=== PATIENT | female | born 1950 | race Two or more races ===

== ENCOUNTER 2016-09-28 11:24 | Inpatient (IN) | payer MEDICARE ==
[~2016-09-28] VITALS: Ht 170.2 cm; Wt 85.7 kg
--- NOTE | 2016-09-28 11:37 | NUR ---
PT BIB [facility] C/O DIZZINESS, HTN, AND CHEST PRESSURE/HEAVINESS THIS MORNING. PT DENIES "CHEST PAIN", JUST "PRESSURE". REPORT N/V, DENIES HEMATEMESIS. PT APPEARS VERY ANXIOUS AND TEARY. PT REPORTS POOR COMPLIANCE WITH ANTIHYPERTENSIVES. RESP EVEN UNLABORED. SKIN WARM NONDIAPHORETIC. NO NEURO DEFICITS NOTED. SPEECH CLEAR. DENIES VISION CHANGES. IN ER BED 12 ON MONITOR.
[2016-09-28] MEDS ORDERED: ONDANSETRON HCL/PF 4 MG/2 ML VIAL ONE (12:39)
[2016-09-28] MEDS ORDERED: MECLIZINE HCL 25 MG TABLET ONE (12:39)
[2016-09-28 12:44] LABS: BASOPHILS % (AUTO) 0.5 % (0.0-2.0); EOSINOPHILS # (AUTO) 0.2 /CMM (0.0-0.7); EOSINOPHILS % (AUTO) 3.5 % (0.0-6.0); HEMATOCRIT 41 % (33-45); HEMOGLOBIN 13.7 g/dL (11.5-14.8); LYMPHOCYTES # (AUTO) 1.6 /CMM (0.8-4.8); LYMPHOCYTES % (AUTO) 30.8 % (20.0-44.0); MEAN CORPUSCULAR HEMOGLOBIN 31 PG (26.0-33.0); MEAN CORPUSCULAR HGB CONC 33 g/dl (31.0-36.0); MEAN CORPUSCULAR VOLUME 91 fL (82-100); MONOCYTES # (AUTO) 0.3 /CMM (0.1-1.30); MONOCYTES % (AUTO) 4.7 % (2.0-12.0); NEUTROPHILS # (AUTO) 3.2 /CMM (1.8-8.9); NEUTROPHILS % (AUTO) 60.5 % (43.0-81.0); PLATELET COUNT (AUTO) 238 /CMM (150-450); RDW COEFFICIENT OF VARIATION 13.4 (11.5-15.0); WHITE BLOOD COUNT (AUTO) 5.3 K/uL (4.3-11.0)
--- NOTE | 2016-09-28 12:46 | NUR ---
PT TRANSPORTED TO CT IN STABLE CONDITION
--- NOTE | 2016-09-28 12:50 | NUR ---
Christiana davison in [facility] - 09/28/16 at 1508 by HFOX PT RESTING QUIETLY, NAD NOTED. ALL NEEDS ATTENDED TO.
[2016-09-28 12:54] LABS: CALCIUM, SERUM 8.6 mg/dL (8.5-10.1); CARBON DIOXIDE 28 mmol/L (21-32); CHLORIDE 106 mmol/L (98-107); CREATININE 0.9 mg/dL (0.6-1.3); GLUCOSE 147 mg/dL (74-106); POTASSIUM 3.4 mmol/L (3.5-5.1); SODIUM SERUM 142 mmol/L (136-145); UREA NITROGEN, BLOOD 19 mg/dL (7-18)
[2016-09-28 12:58] LABS: INR 0.99 (0.87-1.13); PROTHROMBIN TIME 10.3 SECS (9.5-12.7)
[2016-09-28] MEDS ORDERED: MECLIZINE HCL 12.5 MG TABLET PO ONE (13:00)
[2016-09-28] MEDS ORDERED: ONDANSETRON HCL/PF 4 MG/2 ML VIAL IV ONE (13:00)
[2016-09-28 13:02] LABS: TROPONIN I < 0.017 ng/mL (0.00-0.056)
[2016-09-28 13:09] LABS: ALANINE AMINOTRANSFERASE 32 U/L (12-78); ALBUMIN 3.6 g/dL (3.4-5.0); ALKALINE PHOSPHATASE 56 U/L (46-116); ASPARTATE AMINOTRANSFERASE 21 U/L (15-37); BILIRUBIN,DIRECT 0.1 mg/dL (0.0-0.2); BILIRUBIN,TOTAL 0.4 mg/dL (0.2-1.0); TOTAL PROTEIN, SERUM 6.8 g/dL (6.4-8.2)
--- NOTE | 2016-09-28 13:10 | NUR ---
PT RESTING QUIETLY, NAD NOTED. ALL NEEDS ATTENDED TO.
[2016-09-28] MEDS ORDERED: PROP40TA7 PO (13:38)
[2016-09-28] MEDS ORDERED: LEVO100T9 PO (13:38)
[2016-09-28] MEDS ORDERED: ASPIRIN 325 MG TABLET ONE (13:59)
[2016-09-28] MEDS ORDERED: NITROGLYCERIN PACKET 1 GM PACKET ONE (14:00)
[2016-09-28] MEDS ORDERED: ASPIRIN 325 MG TABLET PO ONE (14:00)
[2016-09-28] MEDS ORDERED: NITROGLYCERIN PACKET 1 GM PACKET TD ONE (14:00)
--- NOTE | 2016-09-28 14:23 | NUR ---
PT'S BP NOTED TO ELEVATING, THOUGH JUST AMBULATED TO RESTROOM AND BECAME ANXIOUS WHEN I MEDICATED HER. NOTIFIED.
--- NOTE | 2016-09-28 14:25 | NUR ---
PLACED ON 2L O2 VIA NC FOR SUPPORT
--- NOTE | 2016-09-28 14:45 | NUR ---
REPORT GIVEN TO SUSAN PEÑA FOR ADMISSION
--- NOTE | 2016-09-28 14:58 | NUR ---
DR PARKER, CARDIOLOGY, AT BEDSIDE
[2016-09-28] MEDS ORDERED: MORPHINE SULFATE INJ 2 MG/ML DISP.SYRIN IV PRN (15:00)
[2016-09-28] MEDS ORDERED: NITROGLYCERIN 0.4 MG/TAB BOTTLE SL PRN (15:00)
[2016-09-28] MEDS: PROPRANOLOL HCL 40 MG TABLET PO SCH (15:00)
[2016-09-28] MEDS ORDERED: ONDANSETRON HCL/PF 4 MG/2 ML VIAL IVP PRN (15:00)
[2016-09-28] MEDS: LEVOTHYROXINE SODIUM 100 MCG TABLET PO SCH (15:00)
[2016-09-28] MEDS: ASPIRIN 81 MG TAB.CHEW PO SCH (15:00)
--- NOTE | 2016-09-28 15:08 | NUR ---
PT TRANSPORTED TO TELE IN STABLE CONDIITION Addendum: 09/28/16 at 1508 by HFOX VIA ACLS PROTOCOL
[2016-09-28 15:15] VITALS: BP 158/100
--- NOTE | 2016-09-28 15:15 | NUR ---
tele rustic fence builder: admission admitted this 66 yr old female pt from [facility] with dx: chest pain. awake, a/ox4, ambulatory. no c/o sob, or chest pain at this time. placed on tele sr=66 with pvc, bbb. oriented to room and surroundings. all orders acknowledged. no skin breakdown noted. will continue to monitor.
[2016-09-28] MEDS ORDERED: LORAZEPAM INJ 2 MG/ML VIAL IV ONE (15:30)
[2016-09-28 16:00] VITALS: BP 124/64
[2016-09-28] MEDS: AMLODIPINE BESYLATE 5 MG TABLET PO SCH (16:33)
[2016-09-28 17:25] VITALS: BP 124/64
--- NOTE | 2016-09-28 17:30 | NUR ---
tele photographic press screwmaker: notes pt calm and relax at this time. tele sb with bbb=[id number]. instructed to call for assistance. will monitor.
--- NOTE | 2016-09-28 17:55 | NUR ---
tele harbor engineer: md visit dr. landa at bedside with verbal order to do orthostatic b/p now. orthorstatic b/p lyin/68, hr 51, sitting b/p 151/76, hr 51, and standing b/p 133/83, hr 60. dr. landa aware of results. dinner served. instructed to call for assistance. will continue to monitor.
--- NOTE | 2016-09-28 19:50 | NUR ---
tele/rn opening notes patient in bed asleep but able to arouse and respond and can verbalize needs.no pain reported and observed in comfortable position. alert, oriented x4. provided safety instructions and call lights within reach . skin intact and can ambulate. report given by am rn . tele reading at sr 64 with pvc. potassium was at 3.4 l and am rn informed md with no new order but to recheck jeny am labs. iv site on right hand gauge 20. will continue to provide care.
[2016-09-28 20:00] VITALS: BP 112/56
[2016-09-29] VITALS: BP 120/65
[2016-09-29] MEDS: ACETAMINOPHEN 325 MG TABLET PO PRN ×2 (01:46→22:43)
[2016-09-29 04:00] VITALS: BP 124/57
[2016-09-29 06:00] VITALS: BP 132/73
[2016-09-29 06:59] LABS: BASOPHILS % (AUTO) 0.5 % (0.0-2.0); EOSINOPHILS # (AUTO) 0.2 /CMM (0.0-0.7); EOSINOPHILS % (AUTO) 3.9 % (0.0-6.0); HEMATOCRIT 40 % (33-45); HEMOGLOBIN 13.8 g/dL (11.5-14.8); LYMPHOCYTES # (AUTO) 2.1 /CMM (0.8-4.8); LYMPHOCYTES % (AUTO) 39.4 % (20.0-44.0); MEAN CORPUSCULAR HEMOGLOBIN 31 PG (26.0-33.0); MEAN CORPUSCULAR HGB CONC 34 g/dl (31.0-36.0); MEAN CORPUSCULAR VOLUME 92 fL (82-100); MONOCYTES # (AUTO) 0.4 /CMM (0.1-1.30); MONOCYTES % (AUTO) 7.9 % (2.0-12.0); NEUTROPHILS # (AUTO) 2.6 /CMM (1.8-8.9); NEUTROPHILS % (AUTO) 48.3 % (43.0-81.0); PLATELET COUNT (AUTO) 227 /CMM (150-450); RDW COEFFICIENT OF VARIATION 14.2 (11.5-15.0); RED BLOOD CELL COUNT(AUTO) 4.38 MIL/uL (4.0-5.2); WHITE BLOOD COUNT (AUTO) 5.4 K/uL (4.3-11.0)
[2016-09-29 07:02] LABS: CALCIUM, SERUM 8.6 mg/dL (8.5-10.1); MAGNESIUM 1.9 mg/dL (1.8-2.4); POTASSIUM 3.7 mmol/L (3.5-5.1)
--- NOTE | 2016-09-29 07:35 | NUR ---
tele/rn closing notes patient in bed, awake, alert x3. able to verbalize needs. can safely go to bathroom but supervision and educate safety measures. no chest pain reported only dizziness but relieved with tylenol. call light within reach . reported no pain and will continue to monitor.
--- NOTE | 2016-09-29 08:52 | NUR ---
tele lard maker: notes pt c/o that she vomits her food and then flushed it in the toilet. zofran 4mg ivp given by rn. instructed to call for assistance. will monitor.
[2016-09-29] MEDS: PROPRANOLOL HCL 40 MG TABLET PO SCH (08:54)
[2016-09-29] MEDS: LEVOTHYROXINE SODIUM 100 MCG TABLET PO SCH (08:54)
[2016-09-29] MEDS: ASPIRIN 81 MG TAB.CHEW PO SCH (08:54)
[2016-09-29] MEDS: AMLODIPINE BESYLATE 5 MG TABLET PO SCH (08:55)
[2016-09-29] MEDS ORDERED: MAG HYDROX/AL HYDROX/SIMETH 30 ML UDC PO PRN (09:00)
--- NOTE | 2016-09-29 09:00 | NUR ---
tele special technical operations officer: cardio f/u seen and examined by dr. menard with verbal order to give mylanta 30ml po q6h prn for upset stomach. order carried out and acknowledged. pt aware.
[2016-09-29] MEDS ORDERED: REGADENOSON 0.4 MG/5 ML DISP.SYRIN IVP ONE (09:30)
--- NOTE | 2016-09-29 11:15 | NUR ---
m/s olive brine tester: neuro consult seen and examined by dr. villegas with order of stat mri brain without contrast to r/o cerebellar stroke. order acknowledged. pt made aware and checklist completed and signed by pt. also obtained consent from pt re: stress test tomorrow and verbalized understanding. pt aware that no coffee for 24 hours and npo after midnight tonight.
[2016-09-29] MEDS ORDERED: LORAZEPAM INJ 2 MG/ML VIAL IV ONE (11:30)
--- NOTE | 2016-09-29 11:30 | NUR ---
tele clinic supervisor: notes pt called and just remembered and informed me that she had a reaction to a contrast before and had a cardiac arrest. added allergy on pt's profile.
--- NOTE | 2016-09-29 12:24 | NUR ---
m/s doughnut maker: notes ativan 1mg ivp given by rn prior to mri of brain without contrast.
--- NOTE | 2016-09-29 12:30 | NUR ---
m/s high school computer science teacher: notes pt was picked up at this time for mri brain without contrast via w/c at this time.
--- NOTE | 2016-09-29 13:15 | NUR ---
m/s ward maid: notes pt back from mri at this time. instructed to call for assistance. will monitor.
--- NOTE | 2016-09-29 15:00 | NUR ---
m/s line crewman: notes sounds asleep at this time with call light within reach. will continue to monitor.
[2016-09-29 16:00] VITALS: BP 125/69
--- NOTE | 2016-09-29 17:00 | NUR ---
m/s environmental property assessor: notes resting quietly in bed with no distress noted. call light within reach. will monitor.
--- NOTE | 2016-09-29 18:22 | NUR ---
m/s plastering supervisor: notes resting comfortable in bed. pt verbalized understanding re: stress test tomorrow, stated, "nothing to eat and drink after midnight." needs attended. in no apparent distress noted. will continue to monitor.
--- NOTE | 2016-09-29 19:15 | NUR ---
RN OPEN NOTES RECEIVED PATIENT AWAKE IN BED. A/O X4. NO SIGNS OF DISTRESS OR DISCOMFORT. BREATHING EVEN AND UNLABORED. IV ACCESS IN R HAND, PATENT AND INTACT, NO SIGNS OF REDNESS OR INFILTRATION. BED IN LOW LOCKED POSITION WITH SIDE RAILS X2. CALL LIGHT WITHIN REACH. WILL CONTINUE TO MONITOR.
[2016-09-29 20:00] VITALS: BP_SYST 121; BP_SYST 135; BP_DIAS 74; BP_DIAS 87
[2016-09-29] MEDS ORDERED: ATORVASTATIN 10 MG TABLET PO SCH (22:00)
--- NOTE | 2016-09-30 08:03 | NUR ---
RN closing NOTES PATIENT AWAKE IN BED. A/O X4. NO SIGNS OF DISTRESS OR DISCOMFORT. BREATHING EVEN AND UNLABORED. IV ACCESS IN R HAND, PATENT AND INTACT, NO SIGNS OF REDNESS OR INFILTRATION. NO SIGNIFICANT CHANGES THROUGH THE NIGHT. ALL NEEDS MET.BED IN LOW LOCKED POSITION WITH SIDE RAILS X2. CALL LIGHT WITHIN REACH. ENDORSED TO AM SHIFT FOR DOROTHY.
--- NOTE | 2016-09-30 08:04 | NUR ---
RN OPENING NOTES RECEIVED PATIENT IN BED, ASLEEP, IN SEMI DWYER POSITION, NO SOB OR DISTRESS NOTED. A/O X 4, VERBALLY RESPONSIVE AND ABLE TO MAKE NEEDS KNOWN. IV INTACT AND PATENT. KEPT PATIENT CLEAN AND COMFORTABLE IN BED, CALL LIGHT WITHIN PATIENT REACH. WILL CONTINUE TO MONITOR ACCORDINGLY.
[2016-09-30 08:57] VITALS: BP 145/74
[2016-09-30] MEDS: PROPRANOLOL HCL 40 MG TABLET PO SCH (09:00)
[2016-09-30] MEDS: ASPIRIN 81 MG TAB.CHEW PO SCH (10:50)
[2016-09-30] MEDS: AMLODIPINE BESYLATE 5 MG TABLET PO SCH (10:50)
[2016-09-30] MEDS: LEVOTHYROXINE SODIUM 100 MCG TABLET PO SCH (10:50)
--- NOTE | 2016-09-30 14:20 | NUR ---
RN NOTES PATIENT IS COMFORTABLE WITH NO SIGNS OF SOB OR DISTRESS NOTED.
[2016-09-30] MEDS ORDERED: MECLIZINE HCL 25 MG TABLET PO ONE (15:00)
--- NOTE | 2016-09-30 15:30 | NUR ---
RN NOTES DR. HICKMAN ORDERED MECLIZINE AND STOP PROPANOLOL.
[2016-09-30 16:20] VITALS: BP 131/71
--- NOTE | 2016-09-30 17:32 | NUR ---
PAINTER SKI EDGE NOTES DISCHARGE INSTRUCTIONS GIVEN TO PATIENT AND ABLE TO UNDERSTAND INSTRUCTIONS AND SIGNED PAPER AND BELONGINGS LIST. PATIENT LEFT WALKING ACCOMPANIED WITH ISABEL DAVENPORT IN STABLE CONDITION. NO SOB OR DISTRESS NOTED, NOR COMPLAIN OF PAIN NOR CHEST PAIN. VITALS SIGNS CHECKED AND RECORDED. MD AND CHARGE NURSE AWARE.
== END 2016-09-30 17:32 | disposition home or self-care (01) | DRG 392 ==
LOC: ER 11:26 → TELE 14:34 → MED 09-29 11:12
PROVIDERS: ADMIT Internal Medicine; ATTEND Internal Medicine
DX: K29.70 Gastritis, unspecified, without bleeding (principal); H81.10 Benign paroxysmal vertigo, unspecified ear; E03.9 Hypothyroidism, unspecified; E87.6 Hypokalemia; F41.9 Anxiety disorder, unspecified; I10 Essential (primary) hypertension; Z87.891 Personal history of nicotine dependence; R73.9 Hyperglycemia, unspecified; Z82.49 Family history of ischemic heart disease and other diseases of the circulatory system
CPT/HCPCS: 36415; 70450-TC; 70551-TC; 71010-TC; 80048-TC; 80061-TC; 80076-TC; 83735-TC; 84100-TC; 84484-TC; 85025-TC; 85730-TC; 87081-TC; 93307-TC; A4606; A9502; J2060; J2405; J2785; J8597; Z7610

== ENCOUNTER 2019-04-12 06:53 | Inpatient (IN) | payer MEDICARE, MEDICAID ==
[~2019-04-12] VITALS: Ht 171.4 cm; Wt 80.3 kg
[~2019-04-12 06:53] MED LIST: LEVO100T9 PO; PROP40TA7 PO
--- NOTE | 2019-04-12 07:00 | NUR ---
PT CAME INTO THE ED C/O ABDOMINAL PAIN RADIATING TO BACK X3 DAYS, DIARRHEA SINCE YESTERDAY, N/V SINCE THIS MORNING.PT AAOX4, VSS, BREATHING EVEN AND UNLABORED ON ROOM AIR W/ NAD NOTED. PT CONNECTED TO THE MONITOR AND POX
--- NOTE | 2019-04-12 07:05 | NUR ---
EKG AT BEDSIDE
--- NOTE | 2019-04-12 07:10 | NUR ---
C/O ABDOMINAL PAIN RADIATING TO BACK X3 DAYS, DIARRHEA SINCE YESTERDAY, N/V SINCE THIS MORNING. PATIENT A/OX4, BREATHING EVEN AND UNLABORED, NO SOB NOTED, CHANGED INTO GOWN,A TTACHED TO THE CHROMIUM PLATER.
[2019-04-12] MEDS ORDERED: ONDANSETRON HCL/PF 4 MG/2 ML VIAL ONE ×2 (07:16→09:05)
[2019-04-12] MEDS ORDERED: MORPHINE SULFATE INJ 4 MG/ML DISP.SYRIN ONE (07:16)
[2019-04-12 07:22] LABS: BASOPHILS % (AUTO) 0.5 % (0.0-2.0); HEMATOCRIT 47 % (33-45); HEMOGLOBIN 15.8 g/dL (11.5-14.8); LYMPHOCYTES # (AUTO) 1.5 /CMM (0.8-4.8); LYMPHOCYTES % (AUTO) 16.4 % (20.0-44.0); MEAN CORPUSCULAR HGB CONC 34 g/dl (31.0-36.0); MEAN CORPUSCULAR VOLUME 90 fL (82-100); MONOCYTES # (AUTO) 0.5 /CMM (0.1-1.30); MONOCYTES % (AUTO) 5.7 % (2.0-12.0); NEUTROPHILS # (AUTO) 6.9 /CMM (1.8-8.9); NEUTROPHILS % (AUTO) 77.4 % (43.0-81.0); PLATELET COUNT (AUTO) 213 /CMM (150-450); RED BLOOD CELL COUNT(AUTO) 5.18 MIL/uL (4.0-5.2); WHITE BLOOD COUNT (AUTO) 8.9 K/uL (4.3-11.0)
[2019-04-12 07:29] LABS: CALCIUM, SERUM 9.2 mg/dL (8.5-10.1); CARBON DIOXIDE 22 mmol/L (21-32); CHLORIDE 98 mmol/L (98-107); CREATININE 1.2 mg/dL (0.6-1.3); GLUCOSE 120 mg/dL (74-106); POTASSIUM 3.7 mmol/L (3.5-5.1); SODIUM SERUM 135 mmol/L (136-145); UREA NITROGEN, BLOOD 13 mg/dL (7-18)
[2019-04-12] MEDS ORDERED: ONDANSETRON HCL/PF 4 MG/2 ML VIAL IVP ONE ×2 (07:30→09:00)
[2019-04-12] MEDS ORDERED: IV NS 0.9% 1,000 ML BAG IV ONE (07:30)
[2019-04-12] MEDS ORDERED: MORPHINE SULFATE INJ 2 MG/ML DISP.SYRIN IV ONE (07:30)
[2019-04-12 07:35] LABS: ALANINE AMINOTRANSFERASE 95 U/L (12-78); ALBUMIN 3.7 g/dL (3.4-5.0); ALKALINE PHOSPHATASE 83 U/L (46-116); ASPARTATE AMINOTRANSFERASE 41 U/L (15-37); BILIRUBIN,DIRECT 0.2 mg/dL (0.0-0.2); BILIRUBIN,TOTAL 0.6 mg/dL (0.2-1.0); LIPASE 100 U/L (73-393)
--- NOTE | 2019-04-12 08:01 | NUR ---
URINE SENT TO LAB. PATIENT TAKEN TO CT
[2019-04-12 08:27] LABS: APPEARANCE,URINE CLEAR (CLEAR); COLOR,URINE YELLOW (YELLOW)
[2019-04-12 08:28] LABS: BILIRUBIN,URINE SMALL (NEGATIVE); BLOOD, URINE TRACE Ery/uL (NEGATIVE); KETONES,URINE 1+ (NEGATIVE); LEUKOCYTE ESTERASE ,URINE NEGATIVE (NEGATIVE); NITRITE, URINE NEGATIVE (NEGATIVE); PH,URINE 5.5 (5.0-8.0); PROTEIN,URINE TRACE mg/dl (NEGATIVE); UGLUCOSE NEGATIVE (NEGATIVE); UROBILINOGEN,URINE 0.2 EU/dL (0.2)
[2019-04-12 08:29] LABS: BACTERIA,URINE Few /HPF (None Seen); SQUAMOUS EPITHELIAL CELL,UR Few /HPF (None Seen)
[2019-04-12] MEDS ORDERED: HYDROMORPHONE INJ 2 MG/ML DISP.SYRIN IV ONE (09:00)
[2019-04-12] MEDS ORDERED: FLAGYL/NS RTU 500 MG/100 ML PIGGYBACK IV ONE (09:00)
[2019-04-12] MEDS ORDERED: LEVOFLOXACIN 750 MG /D5W 150ML PIGGYBACK IV ONE (09:00)
[2019-04-12] MEDS ORDERED: METRONIDAZOLE 500MG/ NS 100ML 100 ML IV ONE (09:03)
[2019-04-12] MEDS ORDERED: LEVOFLOXACIN 750 MG /D5W 150ML 150 ML IV ONE (09:03)
[2019-04-12] MEDS ORDERED: HYDROMORPHONE 1 MG/1 ML DISP.SYRIN ONE (09:05)
--- NOTE | 2019-04-12 09:14 | NUR ---
PAGED [facility].
--- NOTE | 2019-04-12 09:31 | NUR ---
NURSING SUP GAVE M/S BED 203.
--- NOTE | 2019-04-12 09:36 | NUR ---
CALLED DR. MILLER OFFICE. CURRENTLY WITH PT, WILL CALL BACK WHEN AVAILABLE.
[2019-04-12] MEDS ORDERED: PROP40TA7 PO (09:37)
[2019-04-12] MEDS ORDERED: ACETAMINOPHEN 325 MG TABLET PO PRN (10:00)
--- NOTE | 2019-04-12 10:24 | NUR ---
PATIENT TRANSFERRED TO ROOM 203, IN STABLE CONDITION.
--- NOTE | 2019-04-12 10:30 | NUR ---
MS QUALITY ASSURANCE AUDITOR NOTE PT ARRIVED TO MS2 VIA W/C IN STABLE CONDITION. PT IS A/O X4, AFEBRILE. RESPIRATIONS ARE EVEN AND UNLABORED, NOT IN ANY ACUTE DISTRESS NOTED. PT C/O MINIMAL ABDOMINAL PAIN AT THIS TIME AND IS TOLERABLE, NO C/O SOB, N/V. PUPILS ARE REACTIVE TO LIGHT, BILATERAL HAND SUPERVISOR RECORDS CHANGE ARE STRONG AND EQUAL. PT ABLE TO PIVOT SELF FROM W/C TO BED. ABDOMEN IS ROUND, NONDISTENDED, BOWEL SOUNDS ARE PRESENT IN ALL 4 QUADRANTS UPON AUSCULTATION. DENIES ANY BLADDER DISCOMFORT. IV SITE TO RAC G20 INTACT, NO INFILTRATION NOTED. DRESSING KEPT CLEAN AND DRY. SKIN CDI. SAFETY MEASURES ARE IN PLACE. INSTRUCTED PT OT USE CALL LIGHT WHEN ASSISTANCE IS NEEDED, CALL LIGHT IS LEFT WITHIN REACH. WILL CONTINUE TO MONITOR THROUGHOUT SHIFT FOR CONTINUITY OF CARE.
[2019-04-12] MEDS: IV NS 0.9% 1,000 ML IV PRN (11:01)
[2019-04-12] MEDS: PANTOPRAZOLE 40 MG VIAL IV SCH (11:03)
[2019-04-12 11:12] VITALS: BP 110/70
[2019-04-12] MEDS: HYDROMORPHONE INJ 2 MG/ML DISP.SYRIN IV PRN ×3 (11:31→19:38)
[2019-04-12] MEDS ORDERED: METRONIDAZOLE 500MG/ NS 100ML 500 MG in PREMIX 1 EA IV SCH (12:00)
[2019-04-12 15:23] VITALS: BP 110/70
[2019-04-12 15:33] VITALS: BP 110/70
[2019-04-12] MEDS: METRONIDAZOLE 500MG/ NS 100ML 500 MG in PREMIX 1 EA IV SCH (16:15)
--- NOTE | 2019-04-12 18:33 | NUR ---
MS RN NOTES-- RECEIVED ORDERS PER DR. SAEZ THAT PT IS NPO AND MAY HAVE ICE CHIPS TONIGHT, START CLEAR LIQUIDS IN AM. ORDERS READ BACK AND VERIFIED, NOTED AND CARRIED OUT.
--- NOTE | 2019-04-12 18:34 | NUR ---
MS RN END OF SHIFT REPORT PT IS A/OX4, AFEBRILE. RESPIRATIONS ARE EVEN AND UNLABORED, NOT IN ANY ACUTEIV ACCESS TO RAC INTACT, NO INFILTRATION NOTED. DRESSING KEPT CLEAN AND DRY. ABDOMEN IS SOFT AND NONDISTENDED, + BOWEL SOUNDS, + FLATUS. DENIES ANY BLADDER DISCOMFORT, VOIDS. PT IS CONTINENT, SBA. SKIN CDI. ALL NEEDS MET AND RENDERED. SAFETY MEASURES ARE IN PLACE. INSTRUCTED PT TO USE CALL LIGHT WHEN ASSISTANCE IS NEEDED, CALL LIGHT IS LEFT WITHIN REACH. WILL CONTINUE POC AND ENDORSE TO NEXT SHIFT.
[2019-04-12] MEDS: ONDANSETRON HCL/PF 4 MG/2 ML VIAL IVP PRN (19:44)
[2019-04-12 20:00] VITALS: BP 135/74
[2019-04-12] MEDS ORDERED: TEMAZEPAM 15 MG CAPSULE PO PRN (22:00)
[2019-04-13] MEDS: METRONIDAZOLE 500MG/ NS 100ML 500 MG in PREMIX 1 EA IV SCH ×5 (00:11→23:59)
[2019-04-13] MEDS: ONDANSETRON HCL/PF 4 MG/2 ML VIAL IVP PRN ×2 (02:06→15:55)
[2019-04-13] MEDS: HYDROMORPHONE INJ 2 MG/ML DISP.SYRIN IV PRN ×2 (02:10→12:33)
--- NOTE | 2019-04-13 06:24 | NUR ---
MS RN NOTES AWAKE & RESPONSIVE. NOT IN ANY DISTRESS. NO SOB NOTED. DENIES ANY PAIN OR DISCOMFORT AT THIS TIME. WITH IVF INFUSING WELL. MONITORED ACCORDINGLY. CALL LIGHT WITHIN REACH. BED IN LOWEST POSITION. SR UP X 2 FOR SAFETY. WILL ENDORSE TO NEXT SHIFT.
[2019-04-13 06:31] LABS: BASOPHILS % (AUTO) 0.3 % (0.0-2.0); EOSINOPHILS % (AUTO) 0.1 % (0.0-6.0); HEMATOCRIT 40 % (33-45); HEMOGLOBIN 13.5 g/dL (11.5-14.8); LYMPHOCYTES # (AUTO) 1.1 /CMM (0.8-4.8); LYMPHOCYTES % (AUTO) 17.9 % (20.0-44.0); MEAN CORPUSCULAR HGB CONC 34 g/dl (31.0-36.0); MEAN CORPUSCULAR VOLUME 91 fL (82-100); MONOCYTES # (AUTO) 0.7 /CMM (0.1-1.30); MONOCYTES % (AUTO) 10.5 % (2.0-12.0); NEUTROPHILS # (AUTO) 4.5 /CMM (1.8-8.9); NEUTROPHILS % (AUTO) 71.2 % (43.0-81.0); PLATELET COUNT (AUTO) 186 /CMM (150-450); RED BLOOD CELL COUNT(AUTO) 4.39 MIL/uL (4.0-5.2); WHITE BLOOD COUNT (AUTO) 6.3 K/uL (4.3-11.0)
[2019-04-13 06:36] LABS: CALCIUM, SERUM 8.5 mg/dL (8.5-10.1); CREATININE 1.1 mg/dL (0.6-1.3); MAGNESIUM 1.9 mg/dL (1.8-2.4); PHOSPHORUS 2.8 mg/dL (2.5-4.9); POTASSIUM 3.7 mmol/L (3.5-5.1)
[2019-04-13 08:00] VITALS: BP 120/59
--- NOTE | 2019-04-13 08:02 | NUR ---
MS RN NOTES PATIENT RECEIVED RESTING INSIDE ROOM. AWAKE, ALERT AND ORIENTED X 4. VERBALLY RESPONSIVE AND RESPONDS TO VERBAL AND TACTILE STIMULI. NO ACUTE DISTRESS. NO CHANGES IN LOC NOTED. PATIENT WITH IVF ORDERED BUT PATIENT REFUSING TO HAVE ONGOING IVF IV SITE IS CURRENTLY ON AC. OFFERED IV SITE CHANGE BUT PATIENT REFUSED AT THIS TIME, RISKS AND BENEFITS EXPLAINED BUT TO NO AVAIL, PATIENT STRONGLY REFUSED. WILL CONTINUE TO MONITOR. BED LOCKED AND IN LOW POSITION. BILATERAL UPPER SIDE RAILS UP AND LOCKED. CALL LIGHT WITHIN EASY REACH
[2019-04-13] MEDS: PANTOPRAZOLE 40 MG VIAL IV SCH (08:23)
[2019-04-13] MEDS: LEVOFLOXACIN 500 MG /D5W 100ML 500 MG in PREMIX 1 EA IV SCH (08:23)
[2019-04-13] MEDS: IV NS 0.9% 1,000 ML IV PRN (11:31)
[2019-04-13] MEDS ORDERED: LEVOFLOXACIN 500 MG /D5W 100ML 500 MG in PREMIX 1 EA IV SCH (12:00)
--- NOTE | 2019-04-13 13:20 | NUR ---
MS KARLA NOTES STOOL SAMPLE COLLECTED AND BROUGHT TO LAB
[2019-04-13 16:00] VITALS: BP 126/61
--- NOTE | 2019-04-13 18:02 | NUR ---
MS RN NOTES PATIENT RESTING INSIDE ROOM. AWAKE, A/O X 4. NO ACUTE DISTRESS. DENIES ANY PAIN OR DISCOMFORT. TOLERATING FULL LIQUID DIET. PATIENT KEPT CLEAN, DRY AND COMFORTABLE. IVF ONGOING ORDERED. WILL ENDORSE TO INCOMING SHIFT FOR DOROTHY. BED LOCKED AND IN LOW POSITION. BILATERAL UPPER SIDE RAILS UP AND LOCKED. CALL LIGHT WITHIN EASY REACH
[2019-04-13 20:00] VITALS: BP 138/80
[2019-04-13] MEDS: MORPHINE SULFATE INJ 2 MG/ML DISP.SYRIN IV PRN (21:17)
[2019-04-14] MEDS: METRONIDAZOLE 500MG/ NS 100ML 500 MG in PREMIX 1 EA IV SCH ×4 (05:31→23:31)
[2019-04-14] MEDS: IV NS 0.9% 1,000 ML IV PRN ×2 (05:38→21:29)
[2019-04-14 06:28] LABS: BASOPHILS % (AUTO) 0.3 % (0.0-2.0); HEMATOCRIT 39 % (33-45); HEMOGLOBIN 13.5 g/dL (11.5-14.8); LYMPHOCYTES # (AUTO) 1.5 /CMM (0.8-4.8); LYMPHOCYTES % (AUTO) 31.6 % (20.0-44.0); MEAN CORPUSCULAR HGB CONC 34 g/dl (31.0-36.0); MEAN CORPUSCULAR VOLUME 89 fL (82-100); MONOCYTES # (AUTO) 0.5 /CMM (0.1-1.30); MONOCYTES % (AUTO) 9.7 % (2.0-12.0); NEUTROPHILS # (AUTO) 2.7 /CMM (1.8-8.9); NEUTROPHILS % (AUTO) 55.4 % (43.0-81.0); PLATELET COUNT (AUTO) 183 /CMM (150-450); RED BLOOD CELL COUNT(AUTO) 4.41 MIL/uL (4.0-5.2); WHITE BLOOD COUNT (AUTO) 4.8 K/uL (4.3-11.0)
[2019-04-14 06:37] LABS: ALBUMIN 2.9 g/dL (3.4-5.0); BILIRUBIN,DIRECT 0.1 mg/dL (0.0-0.2); BILIRUBIN,TOTAL 0.3 mg/dL (0.2-1.0); CALCIUM, SERUM 8.7 mg/dL (8.5-10.1); CREATININE 0.9 mg/dL (0.6-1.3); POTASSIUM 3.3 mmol/L (3.5-5.1); TOTAL PROTEIN, SERUM 6.3 g/dL (6.4-8.2)
--- NOTE | 2019-04-14 07:43 | NUR ---
MS RN NOTES PATIENT RECEIVED RESTING INSIDE ROOM. AWAKE, ALERT AND ORIENTED X 4. VERBALLY RESPONSIVE AND RESPONDS TO VERBAL AND TACTILE STIMULI. NO CHANGES IN LOC NOTED. DENIES ANY PAIN OR DISCOMFORT. IVF ONGOING ORDERED AND PATIENT TOLERATING WELL. INFORMED PATIENT THAT WE MAY NOW ADVANCE DIET TO SOFT AND MAY ADVANCE SHE TOLERATES, PATIENT VERBALIZED UNDERSTANDING AND SAID SHE IS OK WITH HAVING FULL LIQUID DIET AT THIS TIME AND IS OK TO START SOFT FOOD AT LUNCH. HOSPITALIST AWARE AND OK. WILL CONTINUE TO MONITOR. BED LOCKED AND IN LOW POSITION. BILATERAL UPPER SIDE RAILS UP AND LOCKED. CALL LIGHT WITHIN EASY REACH
[2019-04-14 08:00] VITALS: BP 146/80
[2019-04-14] MEDS: LEVOTHYROXINE SODIUM 100 MCG TABLET PO SCH (08:38)
[2019-04-14] MEDS: LEVOFLOXACIN 500 MG /D5W 100ML 500 MG in PREMIX 1 EA IV SCH (08:38)
[2019-04-14] MEDS: PANTOPRAZOLE 40 MG VIAL IV SCH (08:38)
[2019-04-14] MEDS: PROPRANOLOL HCL 40 MG TABLET PO SCH (08:38)
[2019-04-14] MEDS ORDERED: HYDROCODONE/APAP 5/325MG 1 EACH TABLET PO PRN (11:00)
[2019-04-14] MEDS ORDERED: POTASSIUM CHLORIDE 20 MEQ TAB.PRT.SR PO SCH (11:30)
[2019-04-14] MEDS: ONDANSETRON HCL/PF 4 MG/2 ML VIAL IVP PRN (14:36)
[2019-04-14] MEDS: MORPHINE SULFATE INJ 2 MG/ML DISP.SYRIN IV PRN (14:37)
--- NOTE | 2019-04-14 15:04 | NUR ---
MS RN NOTES STOOL CX PRELIM RESULT RECEIVED FROM [facility] AND RELAYED TO DR STUART SAEZ DNP. NO NEW ORDERS RECEIVED AT THIS TIME. NO NEED TO ISOLATE. PATIENT MADE AWARE AND VERBALIZED UNDERSTANDING. WILL CONTINUE TO MONITOR
[2019-04-14 16:00] VITALS: BP 121/64
--- NOTE | 2019-04-14 18:58 | NUR ---
MS RN NOTES PATIENT RESTING INSIDE ROOM. AWAKE, A/O X 4. NO ACUTE DISTRESS. DENIES ANY PAIN OR DISCOMFORT. TOLERATING SOFT DIET. PATIENT KEPT CLEAN, DRY AND COMFORTABLE. IVF ONGOING ORDERED. WILL ENDORSE TO INCOMING SHIFT FOR DOROTHY. BED LOCKED AND IN LOW POSITION. BILATERAL UPPER SIDE RAILS UP AND LOCKED. CALL LIGHT WITHIN EASY REACH
--- NOTE | 2019-04-14 19:27 | NUR ---
MS RN RECEIVE PT IN BED, A/O X 4, WATCHING TV. STABLE AND NOT IN DISTRESS, SAFETY MEASURES AT ALL TIMES. WILL CONTINUE TO MONITOR.
[2019-04-14 20:00] VITALS: BP 123/64
[2019-04-15] MEDS: METRONIDAZOLE 500MG/ NS 100ML 500 MG in PREMIX 1 EA IV SCH ×3 (05:14→05:26)
--- NOTE | 2019-04-15 05:19 | NUR ---
PT INITIALLY REFUSED IVF FLAGYL BUT CHANGE MIND AND WANTED TO TAKE AT THIS TIME
--- NOTE | 2019-04-15 06:27 | NUR ---
MS RN PT ASLEEP AND EASILY AWAKEN, NO S/S OF DISTRESS. NO C/O PAIN. PT HAD A MEDIUM SOFT FORMED BOWEL MOVEMENT. AFEBRILE, NEEDS ATTENDED AND ANTICIPATED, KEPT CLEAN, DRY AND COMFORTABLE. AM CARE RENDERED. SAFETY MEASURES AT ALL TIMES. WILL ENDORSE TO NEXT SHIFT. Addendum: 04/15/19 at 0635 by HOLLAND ROJAS RN MONITORED FOR PAIN NO C/O OF PAIN THROUGHOUT THE SHIFT
[2019-04-15 07:07] LABS: CALCIUM, SERUM 8.6 mg/dL (8.5-10.1); CREATININE 0.8 mg/dL (0.6-1.3); POTASSIUM 3.5 mmol/L (3.5-5.1)
--- NOTE | 2019-04-15 07:38 | NUR ---
RN OPENING NOTES Received patient on room air, no sob noted, patient remains a/o x4 at this time. RFA 20 NS @ 100 ml per hour. stool culture shows campylobacter positive. Anticipated DC today. Bed at the lowest setting, call light within reach, side rails up x2.
[2019-04-15] MEDS ORDERED: ONDA4TAB5 PO ×2 (07:49→09:18)
[2019-04-15] MEDS ORDERED: HYDR-4384 PO ×2 (07:49→09:18)
[2019-04-15] MEDS ORDERED: AZIT500T PO ×2 (07:49→09:18)
[2019-04-15] MEDS ORDERED: TEMA15CA5 PO ×2 (07:49→09:18)
[2019-04-15 08:00] VITALS: BP 159/81
[2019-04-15] MEDS: LEVOTHYROXINE SODIUM 100 MCG TABLET PO SCH (08:28)
[2019-04-15 08:29] VITALS: BP 159/81
[2019-04-15] MEDS: PROPRANOLOL HCL 40 MG TABLET PO SCH (08:29)
[2019-04-15] MEDS: PANTOPRAZOLE 40 MG VIAL IV SCH (08:30)
[2019-04-15] MEDS: LEVOFLOXACIN 500 MG /D5W 100ML 500 MG in PREMIX 1 EA IV SCH (08:49)
--- NOTE | 2019-04-15 10:00 | NUR ---
biology internship notes Patient discharged at this time. no sob noted, vital signs stable. patient has all the paperworks at this time, [facility] received her prescription and patient will pick it up. Called pharmacy to clarify the possible double order being sent, they stated that only one was received. Patient picked up by her friend. Patient's IVF removed with minimal bleeding noted.
== END 2019-04-15 10:00 | disposition home or self-care (01) | DRG 372 ==
LOC: ER 06:56 → MEDSG2 09:51
PROVIDERS: ADMIT Nurse Practitioner Acute Care; ATTEND Nurse Practitioner Acute Care
DX: A04.5 Campylobacter enteritis (principal); E87.1 Hypo-osmolality and hyponatremia; E86.1 Hypovolemia; E03.9 Hypothyroidism, unspecified; K57.30 Diverticulosis of large intestine without perforation or abscess without bleeding; K44.9 Diaphragmatic hernia without obstruction or gangrene; I10 Essential (primary) hypertension; Z87.891 Personal history of nicotine dependence; Z88.0 Allergy status to penicillin; Z88.2 Allergy status to sulfonamides; R74.0 Nonspecific elevation of levels of transaminase and lactic acid dehydrogenase [LDH]; K80.20 Calculus of gallbladder without cholecystitis without obstruction; K76.0 Fatty (change of) liver, not elsewhere classified; Z85.42 Personal history of malignant neoplasm of other parts of uterus; Z90.710 Acquired absence of both cervix and uterus
CPT/HCPCS: 36415; 71045-TC; 76700-TC; 80048-TC; 80061-TC; 80076-TC; 81000-TC; 83690-TC; 83735-TC; 84100-TC; 84484-TC; 85025-TC; 85730-TC; 87040-TC; 87045-TC; 87081-TC; 89055; 97116-TC; 97530-TC; A4216; C9113; G0378; J1170; J1956; J2270; J2405; J3490; J7030

== ENCOUNTER 2020-06-04 10:18 | Outpatient (CLI) | payer MEDICARE, MEDICAID ==
[~2020-06-04 10:18] MED LIST changes: +AZIT500T PO; +HYDR-4384 PO; +ONDA4TAB5 PO; +TEMA15CA5 PO
== END 2020-06-04 23:59 | disposition home or self-care (01) ==
LOC: MSC 10:18
PROVIDERS: ATTEND Anesthesiology
DX: M79.604 Pain in right leg (principal); M46.96 Unspecified inflammatory spondylopathy, lumbar region; M51.26 Other intervertebral disc displacement, lumbar region; M47.27 Other spondylosis with radiculopathy, lumbosacral region; M40.299 Other kyphosis, site unspecified; M62.830 Muscle spasm of back; Z79.891 Long term (current) use of opiate analgesic; Z88.5 Allergy status to narcotic agent; Z87.891 Personal history of nicotine dependence